=== PATIENT | male | born 1955 | race Caucasian/White ===

== ENCOUNTER 2021-06-19 13:09 | Outpatient (REF) | payer OTHER, SELFPAY ==
--- NOTE | ~2021-06-19 | XR_ITS ---
EXAMINATION: XR HAND, BILATERAL XR FOOT, BILATERAL XR CHEST CLINICAL INFORMATION: Rheumatoid arthritis. COMPARISON: None TECHNIQUE: 3 views each hand, 3 views each foot and 2 views chest exam. FINDINGS: LEFT FOOT: There is no visible acute fracture, dislocation or subluxation. The ankle mortise and subtalar joints are normal. RIGHT FOOT: There is no visible acute fracture, dislocation or subluxation. The PIP and DIP joint space is maintained normal. The ankle mortise and subtalar joints are normal. The soft tissues are normal. LEFT HAND: There is mild loss of PIP and PIP joints space, radiocarpal joint space without spurring. There is no osteopenia. Minimal soft tissue swelling is seen along the PIP joints. There is mild bony erosive changes distal 4th metacarpal radial aspect. This is associated with moderate soft tissue swelling. RIGHT HAND: There is a loss of PIP and DIP joint space with subchondral cystic changes distal 5th metatarsal. The soft tissues are normal. XR CHEST: The lungs are well-expanded and clear of acute process. The heart size and pulmonary vascularity is normal. No gross bony abnormality seen. XR/XR chest 2V IMPRESSION: Unremarkable bilateral foot exam. Subchondral cystic changes distal 5th metacarpal with soft tissue swelling. Subchondral erosive changes distal proximal phalanx 4th digit with mild soft tissue swelling. Mild soft tissue swelling is also seen along the PIP joints of all digits. No acute fracture or dislocation seen. The above findings are strongly suggestive of rheumatoid arthritis. Unremarkable chest exam.
--- NOTE | ~2021-06-19 | XR_ITS ---
EXAMINATION: XR HAND, BILATERAL XR FOOT, BILATERAL XR CHEST CLINICAL INFORMATION: Rheumatoid arthritis. COMPARISON: None TECHNIQUE: 3 views each hand, 3 views each foot and 2 views chest exam. FINDINGS: LEFT FOOT: There is no visible acute fracture, dislocation or subluxation. The ankle mortise and subtalar joints are normal. RIGHT FOOT: There is no visible acute fracture, dislocation or subluxation. The PIP and DIP joint space is maintained normal. The ankle mortise and subtalar joints are normal. The soft tissues are normal. LEFT HAND: There is mild loss of PIP and PIP joints space, radiocarpal joint space without spurring. There is no osteopenia. Minimal soft tissue swelling is seen along the PIP joints. There is mild bony erosive changes distal 4th metacarpal radial aspect. This is associated with moderate soft tissue swelling. RIGHT HAND: There is a loss of PIP and DIP joint space with subchondral cystic changes distal 5th metatarsal. The soft tissues are normal. XR CHEST: The lungs are well-expanded and clear of acute process. The heart size and pulmonary vascularity is normal. No gross bony abnormality seen. XR/XR foot LT 2V IMPRESSION: Unremarkable bilateral foot exam. Subchondral cystic changes distal 5th metacarpal with soft tissue swelling. Subchondral erosive changes distal proximal phalanx 4th digit with mild soft tissue swelling. Mild soft tissue swelling is also seen along the PIP joints of all digits. No acute fracture or dislocation seen. The above findings are strongly suggestive of rheumatoid arthritis. Unremarkable chest exam.
--- NOTE | ~2021-06-19 | XR_ITS ---
EXAMINATION: XR HAND, BILATERAL XR FOOT, BILATERAL XR CHEST CLINICAL INFORMATION: Rheumatoid arthritis. COMPARISON: None TECHNIQUE: 3 views each hand, 3 views each foot and 2 views chest exam. FINDINGS: LEFT FOOT: There is no visible acute fracture, dislocation or subluxation. The ankle mortise and subtalar joints are normal. RIGHT FOOT: There is no visible acute fracture, dislocation or subluxation. The PIP and DIP joint space is maintained normal. The ankle mortise and subtalar joints are normal. The soft tissues are normal. LEFT HAND: There is mild loss of PIP and PIP joints space, radiocarpal joint space without spurring. There is no osteopenia. Minimal soft tissue swelling is seen along the PIP joints. There is mild bony erosive changes distal 4th metacarpal radial aspect. This is associated with moderate soft tissue swelling. RIGHT HAND: There is a loss of PIP and DIP joint space with subchondral cystic changes distal 5th metatarsal. The soft tissues are normal. XR CHEST: The lungs are well-expanded and clear of acute process. The heart size and pulmonary vascularity is normal. No gross bony abnormality seen. XR/XR hand RT min 3V IMPRESSION: Unremarkable bilateral foot exam. Subchondral cystic changes distal 5th metacarpal with soft tissue swelling. Subchondral erosive changes distal proximal phalanx 4th digit with mild soft tissue swelling. Mild soft tissue swelling is also seen along the PIP joints of all digits. No acute fracture or dislocation seen. The above findings are strongly suggestive of rheumatoid arthritis. Unremarkable chest exam.
--- NOTE | ~2021-06-19 | XR_ITS ---
EXAMINATION: XR HAND, BILATERAL XR FOOT, BILATERAL XR CHEST CLINICAL INFORMATION: Rheumatoid arthritis. COMPARISON: None TECHNIQUE: 3 views each hand, 3 views each foot and 2 views chest exam. FINDINGS: LEFT FOOT: There is no visible acute fracture, dislocation or subluxation. The ankle mortise and subtalar joints are normal. RIGHT FOOT: There is no visible acute fracture, dislocation or subluxation. The PIP and DIP joint space is maintained normal. The ankle mortise and subtalar joints are normal. The soft tissues are normal. LEFT HAND: There is mild loss of PIP and PIP joints space, radiocarpal joint space without spurring. There is no osteopenia. Minimal soft tissue swelling is seen along the PIP joints. There is mild bony erosive changes distal 4th metacarpal radial aspect. This is associated with moderate soft tissue swelling. RIGHT HAND: There is a loss of PIP and DIP joint space with subchondral cystic changes distal 5th metatarsal. The soft tissues are normal. XR CHEST: The lungs are well-expanded and clear of acute process. The heart size and pulmonary vascularity is normal. No gross bony abnormality seen. XR/XR foot RT 2V IMPRESSION: Unremarkable bilateral foot exam. Subchondral cystic changes distal 5th metacarpal with soft tissue swelling. Subchondral erosive changes distal proximal phalanx 4th digit with mild soft tissue swelling. Mild soft tissue swelling is also seen along the PIP joints of all digits. No acute fracture or dislocation seen. The above findings are strongly suggestive of rheumatoid arthritis. Unremarkable chest exam.
--- NOTE | ~2021-06-19 | XR_ITS ---
EXAMINATION: XR HAND, BILATERAL XR FOOT, BILATERAL XR CHEST CLINICAL INFORMATION: Rheumatoid arthritis. COMPARISON: None TECHNIQUE: 3 views each hand, 3 views each foot and 2 views chest exam. FINDINGS: LEFT FOOT: There is no visible acute fracture, dislocation or subluxation. The ankle mortise and subtalar joints are normal. RIGHT FOOT: There is no visible acute fracture, dislocation or subluxation. The PIP and DIP joint space is maintained normal. The ankle mortise and subtalar joints are normal. The soft tissues are normal. LEFT HAND: There is mild loss of PIP and PIP joints space, radiocarpal joint space without spurring. There is no osteopenia. Minimal soft tissue swelling is seen along the PIP joints. There is mild bony erosive changes distal 4th metacarpal radial aspect. This is associated with moderate soft tissue swelling. RIGHT HAND: There is a loss of PIP and DIP joint space with subchondral cystic changes distal 5th metatarsal. The soft tissues are normal. XR CHEST: The lungs are well-expanded and clear of acute process. The heart size and pulmonary vascularity is normal. No gross bony abnormality seen. XR/XR hand LT min 3V IMPRESSION: Unremarkable bilateral foot exam. Subchondral cystic changes distal 5th metacarpal with soft tissue swelling. Subchondral erosive changes distal proximal phalanx 4th digit with mild soft tissue swelling. Mild soft tissue swelling is also seen along the PIP joints of all digits. No acute fracture or dislocation seen. The above findings are strongly suggestive of rheumatoid arthritis. Unremarkable chest exam.
[2021-06-19 14:21] LABS: MANUAL DIFF FLAG NO
[2021-06-19 14:25] LABS: Basophils Absolute Auto 0.1 X10*3/uL (0.0-0.2); Basophils Percent Auto 1.4 % (0-2); Eosinophils Absolute Auto 0.4 X10*3/uL (0.0-0.4); Eosinophils Percent Auto 6.3 % (0-4); Hematocrit 39.5 % (42-52); Hemoglobin 13.2 g/dl (14.0-18.0); Imm Gran Abs Auto 0.02 X10*3/uL (0.00-0.03); Imm Gran Pct Auto 0.3 % (0.0-0.4); Lymphocytes Absolute Auto 1.1 X10*3/uL (1.2-4.9); Lymphocytes Percent Auto 18.1 % (20-40); Mean Corpuscular HGB Conc 33.4 g/dl (31.0-36.0); Mean Corpuscular Hemoglobin 28.5 pg (27.0-33.0); Mean Corpuscular Volume 85.3 fL (80-98); Mean Platelet Volume 9.4 fL (9.4-12.4); Monocytes Absolute Auto 0.7 X10*3/uL (0.1-1.2); Monocytes Percent Auto 12.3 % (2-11); Neutrophils Absolute Auto 3.7 X10*3/uL (2.0-8.3); Neutrophils Percent Auto 61.6 % (45-73); Platelet Count 257 X10*3/uL (160-400); Red Blood Count 4.63 X10*6/uL (4.60-5.80); Red Cell Distribution Width 14.7 % (11.0-16.0); White Blood Count 5.9 X10*3/uL (4.8-10.8)
[2021-06-19 14:50] LABS: Alanine Aminotransferase 20 U/L (0-40); Albumin Level 4.3 g/dL (3.5-5.0); Alkaline Phosphatase 87 U/L (39-117); Anion Gap 12 (12-20); Aspartate Amino Transferase 17 U/L (5-37); Bilirubin Total 0.3 mg/dL (0.0-1.0); Blood Urea Nitrogen 15 mg/dL (9-16); C Reactive Protein 0.36 mg/dL (< or = 0.50); Carbon Dioxide 26 mmol/L (22-29); Chloride 107 mmol/L (96-108); Estimated Glomerular Filt Rate > 60; Glucose Random 109 mg/dL (60-115); Potassium 4.7 mmol/L (3.3-5.1); Sodium 140 mmol/L (135-145); Total Protein 7.2 g/dL (6.5-8.0)
[2021-06-19 15:14] LABS: Rheumatoid Factor 214.1 IU/mL (<15.0)
[2021-06-19 15:15] LABS: Erythrocyte Sedimentation Rate 16 MM/HR (0-15)
[2021-06-21 18:51] LABS: TS Negative Control Passed; TS Panel A 0; TS Panel B 0; TS Positive Control Passed; TSpotTB Negative (SeeBelow)
[2021-06-22 08:07] LABS: HBc Num1 0.08 S/CO (0.00-0.79); HBsAGNum1 0.18 S/CO (0.00-0.99); Hepatitis B Core Antibody Nonreactive (Nonreactive); Hepatitis B Surface Antigen Negative (Negative); ~Hepatitis C Antibody Nonreactive (Nonreactive)
[2021-06-22 08:27] LABS: HBS Num1 0.19 mIU/mL (0-7.99); ~Hepatitis B Surface Antibody NONREACTIVE (Nonreactive)
[2021-06-22 14:56] LABS: Cyclic Citrullinated Peptide >250 UNITS
[2021-06-23 15:06] LABS: Prot Elec - Albumin 4.2 g/dL (3.8-4.8); Prot Elec - Alpha1 0.3 g/dL (0.2-0.3); Prot Elec - Alpha2 0.6 g/dL (0.5-0.9); Prot Elec - Total Protein 6.9 g/dL (6.1-8.1)
[2021-06-23 15:07] LABS: Prot Elec - Beta 1 0.5 g/dL (0.4-0.6); Prot Elec - Beta 2 0.3 g/dL (0.2-0.5); Prot Elec - Gamma 1.1 g/dL (0.8-1.7)
[2021-06-24 04:55] LABS: Hepatitis A Antibody IgM 0.11 Index (0-0.79); ~Hepatitis A Antibody IgM Nonreactive (Nonreactive)
[2021-06-24 22:12] LABS: IgA 202 mg/dL (70-320); IgG 1148 mg/dL (600-1540); IgM 146 mg/dL (50-300)
== END 2021-06-19 13:10 | disposition home or self-care (01) ==
LOC: HO.LAB 13:09
PROVIDERS: PCP Internal Medicine; Visit Provider Student in an Organized Health Care Education/Training Program
DX: Z01.84 Encounter for antibody response examination (principal); Z11.59 Encounter for screening for other viral diseases; Z11.1 Encounter for screening for respiratory tuberculosis; M06.9 Rheumatoid arthritis, unspecified
CPT/HCPCS: 36415; 71046; 73130; 73620; 80053; 82784; 84165; 85025; 85652; 86140; 86200; 86334; 86431; 86481; 86704; 86706; 86709; 86803; 87340

== ENCOUNTER → 2021-07-08 09:10 | Outpatient (BNVA) | payer OTHER, SELFPAY | PROVIDERS: PCP Internal Medicine; Visit Provider Student in an Organized Health Care Education/Training Program ==

== ENCOUNTER → 2021-07-24 12:58 | Outpatient (BNVA) | payer OTHER, SELFPAY | PROVIDERS: PCP Internal Medicine; Visit Provider Student in an Organized Health Care Education/Training Program ==

== ENCOUNTER 2021-10-09 10:58 | Outpatient (REF) | payer OTHER, SELFPAY ==
[2021-10-09 12:16] LABS: MANUAL DIFF FLAG NO
[2021-10-09 13:01] LABS: Basophils Absolute Auto 0.1 X10*3/uL (0.0-0.2); Basophils Percent Auto 1.3 % (0-2); Eosinophils Absolute Auto 0.6 X10*3/uL (0.0-0.4); Eosinophils Percent Auto 9.8 % (0-4); Hematocrit 39.9 % (42.0-52.0); Hemoglobin 13.7 g/dl (14.0-18.0); Imm Gran Abs Auto 0.02 X10*3/uL (0.00-0.03); Imm Gran Pct Auto 0.3 % (0.0-0.4); Lymphocytes Absolute Auto 1.7 X10*3/uL (1.2-4.9); Lymphocytes Percent Auto 26.8 % (20-40); Mean Corpuscular HGB Conc 34.3 g/dl (31.0-36.0); Mean Corpuscular Volume 87.3 fL (80.0-98.0); Mean Platelet Volume 9.7 fL (9.4-12.4); Monocytes Absolute Auto 0.8 X10*3/uL (0.1-1.2); Neutrophils Percent Auto 48.8 % (45-73); Platelet Count 243 X10*3/uL (160-400); Red Blood Count 4.57 X10*6/uL (4.60-5.80); Red Cell Distribution Width 14.1 % (11.0-16.0); White Blood Count 6.2 X10*3/uL (4.8-10.8)
[2021-10-09 13:31] LABS: Alanine Aminotransferase 31 U/L (0-40); Albumin Level 4.4 g/dL (3.5-5.0); Alkaline Phosphatase 64 U/L (39-117); Anion Gap 13 (12-20); Aspartate Amino Transferase 21 U/L (5-37); Bilirubin Total 0.4 mg/dL (0.0-1.0); Blood Urea Nitrogen 17 mg/dL (9-16); Calcium 9.8 mg/dL (8.4-10.2); Carbon Dioxide 26 mmol/L (22-29); Chloride 103 mmol/L (96-108); Estimated Glomerular Filt Rate > 60; Glucose Random 102 mg/dL (60-115); Potassium 4.4 mmol/L (3.3-5.1); Sodium 138 mmol/L (135-145); Total Protein 7.3 g/dL (6.5-8.0)
[2021-10-09 14:16] LABS: Erythrocyte Sedimentation Rate 6 MM/HR (0-15)
== END 2021-10-09 10:59 | disposition home or self-care (01) ==
LOC: HO.LAB 10:58
PROVIDERS: Absent Provider Student in an Organized Health Care Education/Training Program; PCP Internal Medicine; Visit Provider Nurse Practitioner Family
DX: M06.9 Rheumatoid arthritis, unspecified (principal)
CPT/HCPCS: 36415; 80053; 85025; 85652; 86140